=== PATIENT | male | born 1970 | race Caucasian/White ===

== ENCOUNTER → 2018-08-16 | Day surgery (SDC) | payer OTHER ==
--- NOTE | 2018-08-15 15:07 | Diagnostic Imaging Report ---
PROCEDURE: Frontal and lateral views of the chest. COMPARISON: None. INDICATIONS: PRE OP, PT DENIES CHEST COMPLAINTS FINDINGS: Lungs are well-inflated. No focal airspace consolidation, pleural effusion, or pneumothorax. Tortuous thoracic aorta with otherwise normal cardiomediastinal contour. No acute osseous abnormality. Healed fracture deformity of the midshaft of the left clavicle. IMPRESSION: 1. No acute cardiopulmonary abnormality. Dictated by: Luisito Claros M.D. on 08/15/2018 at 15:12 Electronically approved by: Luisito Claros M.D. on 08/15/2018 at 15:12
[2018-08-15 17:20] LABS: BASOPHILS # (AUTO) 0.1 (0.0-0.1); EOSINOPHILS # (AUTO) 0.1 (0.0-0.4); EOSINOPHILS % 1.2 % (0.0-6.0); HEMATOCRIT 40.4 % (38.2-49.6); HEMOGLOBIN 14.1 g/dL (14.0-18.0); LYMPHOCYTES # (AUTO) 1.8 (1.0-3.2); LYMPHOCYTES % 29.5 % (18.0-39.1); MEAN CORPUSCULAR HEMOGLOBIN 31.3 pg (28-32); MEAN CORPUSCULAR HGB CONC 34.9 g/dL (31-35); MEAN CORPUSCULAR VOLUME 89.8 fL (81-99); MONOCYTES # (AUTO) 0.7 (0.2-0.8); MONOCYTES % 10.7 % (4.4-11.3); NEUTROPHILS # (AUTO) 3.5 (2.1-6.9); NEUTROPHILS % 57.3 % (38.7-80.0); PLATELET COUNT 266 x10e3/uL (140-360); RED CELL DISTRIBUTION WIDTH 12.8 % (11.7-14.4)
[2018-08-15 17:44] LABS: ANION GAP 14.4 mmol/L (8-16); BLOOD UREA NITROGEN 24 mg/dL (7-26); BUN/CREATININE RATIO 20 (6-25); CALCIUM 9.5 mg/dL (8.4-10.2); CARBON DIOXIDE 26 mmol/L (22-29); CHLORIDE 101 mmol/L (98-107); CREATININE, SERUM 1.21 mg/dL (0.72-1.25); EST GLOMERULAR FILTRATION RATE > 60 ML/MIN (60-); GLUCOSE 76 mg/dL (74-118); POTASSIUM 4.4 mmol/L (3.5-5.1); SODIUM 137 mmol/L (136-145)
[~2018-08-16] MED LIST: ALLOPURINOL300 MG PO; AMLODIPINE BESY10 MG PO; BACITRACIN 50,000 UNIT VIAL ONE; BUPIVACAINE HCL 0.5% INJ 30 ML VIAL INJ ONE; BYSTOLIC10 MG PO; CEFAZOLIN SOD 1 GM/NS 50ML 100 ML IV ONE; CITALOPRAM HBR20 MG PO; DEXAMETHASONE SOD PHOS INJ 4 MG/ML VIAL ONE; EPHEDRINE SULFATE INJ 50 MG/10 ML SYR ONE; FENTANYL CITRATE/PF 100MCG/2 ML INJ ONE; IBUPROFEN 800MG/ 250ML 250 ML IV ONE; INDOMETHACIN50 MG PO; KETOROLAC TROMETHAMINE 30 MG/ML VIAL ONE; LIDOCAINE HCL 2% LOCAL INJ 5 ML SDV VIAL INJ ONE; MIDAZOLAM HCL 2 MG/2 ML VIAL ONE; NEOSTIGMINE 1 MG/ML 10ML VIAL ONE; NEXIUM40 MG PO; ONDANSETRON HCL INJ 2MG/ML 2ML 2 MG/ML VIAL ONE; PROPOFOL IV EMULSION 10 MG/ML 20 ML VIAL ONE; SEVOFLURANE INHAL SOLN 250 ML PEN BTL ONE
--- OUTSIDE RECORDS SUMMARY | 2018-08-16 08:11 | XMS REPORT ---
[facility] Address Unknown Phone Unavailable Care Team Providers Care Rn Neurosurgical Name Role Phone GILBERT DILL Unavailable Unavailable Problems This patient has no known problems. Allergies, Adverse Reactions, Alerts This patient has no known allergies or adverse reactions. Medications This patient has no known medications. Results Test Description Test Time Test Comments Text Results Atomic Results Result Comments CHEST 2 VIEWS 2018-08-15 15:12:00 [place] [address] Patient Name: YAYO BOJORQUEZ MR #: [id number] : 1970 Age/Sex: 48/M Req #: [id number] Adm Physician: Ordered by: GILBERT DILL DPM Report #: [id number] Location: OR Room/Bed: Procedure: [id number] DX/CHEST 2 VIEWS Exam Date: 08/15/18 Exam Time: 1449 REPORT STATUS: Signed PROCEDURE: Frontal and lateral views of the chest. COMPARISON: None. INDICATIONS: PRE OP, PT DENIES CHEST COMPLAINTS FINDINGS: Lungs are well-inflated. No focal airspace consolidation, pleural effusion, or pneumothorax. Tortuous thoracic aorta with otherwise normal cardiomediastinal contour. No acute osseous abnormality. Healed fracture deformity of the midshaft of the left clavicle. IMPRESSION: 1. No acute cardiopulmonary abnormality. Dictated by: Mel Walsh M.D. on 08/15/2018 at 15:12 Electronically approved by: Mel Walsh M.D. on 08/15/2018 at 15:12 Dictated By: MEL WALSH MD 151 Transcribed By: JUDITH on 08/15/181511 COPY TO: GILBERT DILL DPM
[2018-08-16 13:10] VITALS: BP 125/83
--- NOTE | 2018-08-16 13:12 | Operative Report ---
DATE OF PROCEDURE: 08/16/2018 SURGEON: Shasha Mccarthy DPM PREOPERATIVE DIAGNOSES: 1. Hallux abductovalgus. 2. Hallux interphalangeus. 3. Ganglion cyst. 4. History of gout. POSTOPERATIVE DIAGNOSES: 1. Hallux abductovalgus. 2. Hallux interphalangeus. 3. Ganglion cyst. 4. History of gout. PROCEDURE: 1. Double decompression osteotomy, Justin and heladio, left foot. 2. Excision of cyst, left foot. 3. Use of human allograft. 4. Application of posterior splint. PATHOLOGY: Cyst for pathology. ANESTHESIA: General anesthetic. HEMOSTASIS: Pneumatic thigh tourniquet at 350 mmHg. ESTIMATED BLOOD LOSS: Less than 10 mL. MATERIALS: Two 2.5 x 18 mm screws from [employer], a 4 x 4 human allograft to decrease adhesions to decrease inflammation and pressure advertising display rotator after removal of the cyst and irrigation of the area. COMPLICATIONS: None. CONDITION: Stable. PROCEDURE IN DETAIL: Under mild sedation, the patient was brought to the operating room and placed on the operating table in a supine position. Following IV sedation, anesthesia was obtained with a general anesthetic. At this point, the left foot was scrubbed, prepped, and draped in the usual aseptic manner. It was then lowered to the table. A pneumatic thigh tourniquet was inflated to 350 mmHg and the leg was lowered to the table. Double osteotomy: Attention was directed to the dorsal aspect of the left foot, where a linear incision was made overlying the metatarsophalangeal joint down to the proximal phalanx. The incision was deepened via sharp and blunt dissection taking care to retract or cauterize neurovascular structures as necessary. It was deepened down to level of the capsule. Before the capsule, there was noted a large cyst that encompassed into the capsule. It was then removed in toto, it was passed from the operating table, it consisted of what appeared mucoid fluid and gouty tophi. It was all removed. The area was then flushed with copious amount of irrigation with a pressure advertising display rotator. The cyst was then sent for pathology. At this point to continue the double osteotomy, a linear incision was made overlying the capsule. The capsule was then reflected off the 1st MPJ. All nonviable tissue and gouty tophi were removed. The medial exostosis was removed. A 60-degree osteotomy was performed. The head of the 1st metatarsal was then moved into a more lateral position after the lateral sesamoids were released. The osteotomy was fixated utilizing two screws, 2.5 x 18 mm from [employer]. There was noted to be adequate compression clinically and with the use of intraoperative fluoroscopy of the osteotomy. The area was then flushed with copious amount of normal sterile saline solution. Attention was then directed to the proximal phalanx, where a linear incision was made at the capsule. The capsule was then reflected off the proximal phalanx. A K-wire was then used and Heladio osteotomy was performed. The medial aspect was then feathered in order to close the osteotomy. A staple was then used. There was noted to be adequate compression clinically and with the use of intraoperative fluoroscopy. The area was then flushed with copious amount of normal sterile saline solution. The area was then closed closing the deep layer with 2-0 Vicryl, then 3-0 Vicryl, human allograft was then inserted into the area after the capsule to prevent adhesions and nerve entrapment. The area was then closed with 4-0 Vicryl, then 4-0 nylon. Clean dressing was applied consisting of Adaptic, ointment, 4x4s, Kerlix, Webril. Posterior splint was applied and was secured utilizing an Bam bandage. The tourniquet was deflated. There was noted to be hyperemic response to all the digits. The patient tolerated procedure and anesthesia well without complications, was transported to the recovery room with vital signs stable and vascular status intact. The patient will be discharged home when he meets the criteria. He was given instructions to be nonweightbearing, to ice and elevate the foot while at rest, to follow up in the office and to call the office if any questions, concerns, or new problems arise. SKYLER Stone/FAISAL /[id number]
== END | disposition home or self-care (01) ==
LOC: OR 08:08
PROVIDERS: ATTEND Podiatrist Foot & Ankle Surgery
DX: M20.12 Hallux valgus (acquired), left foot (principal); M20.22 Hallux rigidus, left foot; M20.5X2 Other deformities of toe(s) (acquired), left foot; M67.471 Ganglion, right ankle and foot; M54.9 Dorsalgia, unspecified; H91.90 Unspecified hearing loss, unspecified ear; K21.9 Gastro-esophageal reflux disease without esophagitis; G47.33 Obstructive sleep apnea (adult) (pediatric); I10 Essential (primary) hypertension; Z88.1 Allergy status to other antibiotic agents; Z01.810 Encounter for preprocedural cardiovascular examination; Z01.812 Encounter for preprocedural laboratory examination; Z01.818 Encounter for other preprocedural examination
CPT/HCPCS: 28090; 28299; 36415; 71046; 80048; 84550; 85025; 88302; 88305; 93005; J0690; J1100; J1885; J2001; J2250; J2405; J2704; J2710; Q4150; 88304; J3010